=== PATIENT | female | born 1995 | race Caucasian/White ===

== ENCOUNTER 2019-03-25 09:02 | Emergency (ER) | payer OTHER ==
[~2019-03-25] VITALS: Ht 154.9 cm; Wt 73.5 kg
[2019-03-25 09:07] VITALS: BP 110/66
--- NOTE | 2019-03-25 09:11 | NUR ---
PT AMBULATED TO ER BED 08
--- NOTE | 2019-03-25 09:19 | NUR ---
PT TO ED FOR C/O THROAT PAIN WITH DIFFICULTY AND PAIN SPEAKING/EATING. ALSO C/O BODY ACHES WITH N/V X 2 DAYS. ABLE TO SPEAK WITHOUT DIFFICULTY, NO DROOLING NOTED. NO S/S OF RESP DISTRESS NOTED. PT PLACED INTO BED FOR MD LEE.
[2019-03-25] MEDS ORDERED: CLINDAMYCIN 150 MG CAP PO ONE (09:35)
[2019-03-25] MEDS ORDERED: KETOROLAC 30 MG/ML VIAL IM ONE (09:35)
[2019-03-25 09:51] VITALS: BP 110/66
--- NOTE | 2019-03-25 09:51 | NUR ---
Patient discharged with v/s stable. Written and verbal after care instructions given and explained. Patient alert, oriented and verbalized understanding of instructions. Ambulatory with steady gait. All questions addressed prior to discharge. ID band removed. Patient advised to follow up with PMD. Rx of NAPROXEN, CLINDAMYCIN given. Patient educated on indication of medication including possible reaction and side effects. Opportunity to ask questions provided and answered.
== END 2019-03-25 09:51 | disposition home or self-care (01) ==
LOC: MED 09:02
DX: J02.0 Streptococcal pharyngitis (principal); Z88.0 Allergy status to penicillin
CPT/HCPCS: 96372; 99283; J1885

== ENCOUNTER 2021-03-07 11:35 | Emergency (ER) | payer OTHER ==
[~2021-03-07] VITALS: Ht 154.9 cm; Wt 70.8 kg
[2021-03-07 11:49] VITALS: BP 112/61
--- NOTE | 2021-03-07 11:57 | NUR ---
PATIENT AMBULATED TO LOBBY.
--- NOTE | 2021-03-07 12:57 | NUR ---
PT AMBULATED TO ER BED 2 WITH A STEADY GAIT.
[2021-03-07] MEDS ORDERED: ONDANSETRON 4 MG ODT PO ONE (13:10)
--- NOTE | 2021-03-07 13:13 | NUR ---
25 Y/O FEMALE C/O NAUSEA AND 4 EPISODES OF VOMITING SINCE THIS MORNING. PT REPORTS HAVING 3 ALCOHOLIC DRINKS YESTERDAY AND SMOKING MARIJUANA REGULARLY. LMP 01/29/2021. DENIES FEVER/CHILLS. ABD IS SOFT, FLAT, NON-TENDER TO PALPATION BOWEL SOUNDS ACTIVE X4. DENIES PMH ALLERGIES: PCN
[2021-03-07] MEDS ORDERED: ONDANSETRON 4 MG/2 ML VIAL IVP ONE (13:40)
[2021-03-07] MEDS ORDERED: NACL 0.9% 1,000 ML IV ONE (13:40)
--- NOTE | 2021-03-07 13:45 | NUR ---
PT STATES SHE FEELS A SORE THROAT AND EPGASTRIC PAIN 4/10 DESCRIBES BURNING. MD MADE AWARE.
[2021-03-07] MEDS ORDERED: IBUP-2213 PO (14:11)
[2021-03-07] MEDS ORDERED: ONDA8TAB87 PO (14:11)
[2021-03-07] MEDS ORDERED: ALUMINUM HYD/MAG/SIMETHICONE 30 ML UDC PO ONE (14:25)
--- NOTE | 2021-03-07 15:23 | NUR ---
PT SLEEPING ON RIGHT SIDE, VISIBLE EQUAL RISE AND FALL OF CHEST, VSS, WILL CONTINUE TO MONITOR.
[2021-03-07 16:27] VITALS: BP 122/71
--- NOTE | 2021-03-07 16:27 | NUR ---
Patient discharged with v/s stable. Written and verbal after care instructions given N/V IN ADULTS and explained. Patient alert, oriented and verbalized understanding of instructions. Ambulatory with steady gait. All questions addressed prior to discharge. ID band removed. Patient advised to follow up with PMD. Rx of IBUPROFEN 600MG PO TID PRN PAIN, AND ZOFRAN 8MG PO Q8H PRN N/V given. Patient educated on indication of medication including possible reaction and side effects. Opportunity to ask questions provided and answered.
== END 2021-03-07 16:27 | disposition home or self-care (01) ==
LOC: MED 11:35
DX: R11.2 Nausea with vomiting, unspecified (principal); R10.13 Epigastric pain; F12.90 Cannabis use, unspecified, uncomplicated; Z88.0 Allergy status to penicillin
CPT/HCPCS: 81002; 81025; 96361; 96374; 99283; J2405; J7030; Q0162

== ENCOUNTER 2022-03-18 05:24 | Emergency (ER) | payer OTHER ==
[~2022-03-18] VITALS: Ht 154.9 cm; Wt 69.9 kg
[~2022-03-18 05:24] MED LIST: IBUP-2213 PO; ONDA8TAB87 PO
[2022-03-18 05:27] VITALS: BP 110/53
--- NOTE | 2022-03-18 05:52 | NUR ---
Dr. Rodriguez examining patient.
--- NOTE | 2022-03-18 05:55 | NUR ---
PT TAKEN TO BED 1
[2022-03-18] MEDS ORDERED: SULFAMETH/TRIMETH DS 800/160MG 1 TAB PO ONE (06:30)
--- NOTE | 2022-03-18 06:33 | NUR ---
ASSISTED DR. COLLINS WITH VAGINAL EXAM. PT TOLERATED PROCEDURE WELL [facility] CULTURES OBTAINED. WILL MEDICATE ORDERED.
--- NOTE | 2022-03-18 06:53 | NUR ---
DOCTOR BS EDUCATING PT ON MEDICATIONS THAT HE WILL BE ORDERING FOR HER. IN INFORMED HER THAT HE WOULD BE CALLING HER WITH THE RESULTS. WILL CONTINUE TO MONITOR PT'S STATUS.
[2022-03-18] MEDS ORDERED: CEPH-588 PO (06:58)
[2022-03-18] MEDS ORDERED: FLUC150T PO (06:58)
[2022-03-18 07:09] VITALS: BP 96/62
--- NOTE | 2022-03-18 07:18 | NUR ---
Patient discharged with v/s stable. Written and verbal after care instructions given and explained. Patient alert, oriented and verbalized understanding of instructions. Ambulatory with steady gait. All questions addressed prior to discharge. ID band removed. Patient advised to follow up with PMD. Rx of Cephalexin and Fluconzole given. Patient educated on indication of medication including possible reaction and side effects. Opportunity to ask questions provided and answered. MD to call pt with [facility] results.
[2022-03-18] MEDS ORDERED: METR-435 PO (09:04)
== END 2022-03-18 07:18 | disposition home or self-care (01) ==
LOC: MED 05:24
DX: N76.0 Acute vaginitis (principal); B96.89 Other specified bacterial agents as the cause of diseases classified elsewhere; N39.0 Urinary tract infection, site not specified; N89.8 Other specified noninflammatory disorders of vagina; Z79.899 Other long term (current) drug therapy
CPT/HCPCS: 81002; 81025; 87086; 87210; 87491; 99284